=== PATIENT | female | born 1940 | race Two or more races ===

== ENCOUNTER 2024-09-26 12:25 | Emergency (ER) | payer OTHER ==
[~2024-09-26] VITALS: Ht 162.6 cm; Wt 59.0 kg
[2024-09-26] MEDS ORDERED: RIVASTIGMINE1.5 MG PO (12:52)
[2024-09-26] MEDS ORDERED: TOPROL XL25 M1 (12:53)
[2024-09-26] MEDS ORDERED: NAMENDA XR28 MG PO (12:53)
[2024-09-26] MEDS ORDERED: SYNTHROID75 MCG PO (12:53)
[2024-09-26] MEDS ORDERED: COZAAR50 MG PO (12:54)
[2024-09-26] MEDS ORDERED: AMOX1TAB5 (12:55)
[2024-09-26] MEDS ORDERED: 0.9 % SODIUM CHLORIDE 1,000 ML IV STA (15:25)
[2024-09-26] MEDS ORDERED: FAMOTIDINE/PF 20 MG/2 ML VIAL IV PUSH STA (15:26)
[2024-09-26] MEDS ORDERED: ONDANSETRON HCL 2 MG/ML VIAL IV STA (15:26)
[2024-09-26 15:48] LABS: HEMATOCRIT 43.9 % (36.0-45.00); HEMOGLOBIN 15.1 g/dL (12.0-15.00); MEAN CELL VOLUME 96.2 fL (80.00-100.00); MEAN CORPUSCULAR HEMOGLOBIN 33.1 pg (27.00-32.0); MEAN CORPUSCULAR HGB CONC 34.4 g/dl (32.0-36.0); PLATELET COUNT 207 K/uL (150-450); RED BLOOD COUNT 4.56 M/uL (4.00-6.00); RED CELL DISTRIBUTION WIDTH 13.7 % (11.5-14.5)
[2024-09-26 16:09] LABS: BILIRUBIN TOTAL 0.67 mg/dL (0.3-1.2); CALCIUM 9.4 mg/dL (8.5-10.1); CREATININE SERUM 0.91 mg/dL (0.55-1.02); GFR 59.18; GLOBULINA 4.3 G/DL (2.4-3.5); TOTAL PROTEIN 7.3 gm/dL (6.4-8.2)
== END 2024-09-26 20:16 | disposition home or self-care (01) ==
LOC: ER 12:27
PROVIDERS: Emergency Medicine
DX: R42 Dizziness and giddiness (principal); R11.10 Vomiting, unspecified; Z20.822 Contact with and (suspected) exposure to COVID-19
CPT/HCPCS: 36415; 96365; 96366; 99282; J2405; J3490; J7030